=== PATIENT | female | born 1950 | race Caucasian/White ===

== ENCOUNTER 2016-10-08 21:34 | Emergency (ER) | payer OTHER ==
[2016-10-08 21:44] VITALS: BP 107/58; PULSE 97; TEMP 98.1; BMI 20.8
[2016-10-08] MEDS ORDERED: IBUPROFEN 600 MG TABLET (FP) PO ONE ×2 (23:04→23:11)
--- NOTE | 2016-10-08 23:08 | PDOC ---
[id number] No Limitations - History of Present Illness Initial Comments: 10/08/16 23:30 The patient is a 66 year old female, with a significant past medical history of IDDM, GERD, hypertension, hyperlipidemia, asthma, hypothyroidism, and gastric bypass, who presents to the emergency department complaining of a headache, body aches, stuffy nose, fever, chills, sore throat, cough, and ear pain(pins and needles) for about 3 weeks. The patient states she visited her PCP 4 days ago, was diagnosed with sinusitis, and prescribed augmentin. The patient reports she is compliant with her treatment regimen, but states it has not alleviated her symptoms. The patient reports a headache secondary to coughing. She reports diarrhea for 1 day, with 4+ episodes. She reports chest pain upon deep inspiration, but denies any palpitations, diaphoresis, or SOB. She denies any dysuria, hematuria, frequency, or urgency. She reports she came into contact with children who had an ear and throat infection about 2-3 weeks ago. Allergies: None reported. Past Surgical History:Gastric bypass Social History: Non-smoker. Denies alcohol or drug use. <Ancelmo Argueta - Last Filed: 10/09/16 00:00> <Claudia Harrell - Last Filed: 10/09/16 00:27> - General Chief Complaint: Respiratory Stated Complaint: COLD SYMPTOMS Time Seen by Provider: 10/08/16 22:10 Past History <Ancelmo Argueta - Last Filed: 10/09/16 00:00> - Past Medical History Anemia: No Asthma: Yes Cancer: No Cardiac Disorders: (palpitations) CVA: No COPD: No CHF: No Dementia: No Diabetes: Yes (iddm) GI Disorders: Yes (gerd) Disorders: No HTN: Yes Hypercholesterolemia: Yes Liver Disease: No Seizures: No Thyroid Disease: Yes (hypothyroid) - Surgical History Abdominal Surgery: Yes Appendectomy: No Cardiac Surgery: No Cholecystectomy: Yes Lung Surgery: No Neurologic Surgery: No Orthopedic Surgery: No - Immunization History Immunization Up to Date: Yes - Psycho/Social/Smoking Cessation Hx Anxiety: No Suicidal Ideation: No Smoking Status: No Smoking History: Never smoked Number of Cigarettes Smoked Daily: 0 Hx Alcohol Use: No Drug/Substance Use Hx: No Substance Use Type: None Hx Substance Use Treatment: No <Claudia Harrell - Last Filed: 10/09/16 00:27> - Past Medical History Allergies/Adverse Reactions: Allergies Allergy/AdvReac Type Severity Reaction Status Date / Time No Known Allergies Allergy Verified 10/08/16 21:41 Home Medications: Ambulatory Orders Levothyroxine [Synthroid] 137 mcg PO DAILY 06/08/12 Ascorbate Calcium [Vitamin C] 500 mg PO DAILY 02/04/15 Metoprolol Tartrate [Lopressor -] 25 mg PO BID 02/04/15 Montelukast Na [Singulair -] 5 mg PO HS 02/04/15 Multivitamins [Tab-A-Vit -] 1 tab PO DAILY 02/04/15 Omeprazole [Prilosec] 40 mg PO DAILY 02/04/15 Salmeterol/Fluticasone [Advair 100Mcg/50Mcg -] 1 inh PO BID 02/04/15 Albuterol Sulfate Inhaler - [Ventolin HFA Inhaler -] 1 - 2 inh PO QID #1 inhaler 10/08/16 Prednisone [Deltasone -] 40 mg PO DAILY #10 tablet 10/08/16 Review of Systems - Review of Systems Able to Perform ROS?: Yes Comments:: 10/08/16 23:30 GENERAL/CONSTITUTIONAL: +Fever, +chills, +body aches. No weakness. HEAD, EYES, EARS, NOSE AND THROAT: +Ear pain.+ sore throat. No ear discharge. No change in vision. CARDIOVASCULAR: +Chest pain upon deep inspiration. No shortness of breath. RESPIRATORY: +Cough. No wheezing, or hemoptysis. GASTROINTESTINAL: No nausea, vomiting, diarrhea or constipation. GENITOURINARY: No dysuria, frequency, or change in urination. MUSCULOSKELETAL: No joint or muscle swelling or pain. No neck or back pain. SKIN: No rash NEUROLOGIC: +Headache. No vertigo, loss of consciousness, or change in strength/ sensation. ENDOCRINE: No increased thirst. No abnormal weight change. HEMATOLOGIC/LYMPHATIC: No anemia, easy bleeding, or history of blood clots. ALLERGIC/IMMUNOLOGIC: No hives or skin allergy. <Ancelmo Argueta - Last Filed: 10/09/16 00:00> *Physical Exam - Vital Signs Last Vital Signs Temp Pulse Resp BP Pulse Ox 98.1 F 97 H 18 107/58 100 10/08/16 21:42 10/08/16 21:42 10/08/16 21:42 10/08/16 21:42 10/08/16 21:42 - Physical Exam Comments: 10/08/16 23:33 GENERAL: Awake, alert, and fully oriented, in no acute distress HEAD: No signs of trauma EYES: PERRLA, EOMI, sclera anicteric, conjunctiva clear ENT: +Maxillary sinus tenderness bilaterally. + Bulging of the left tympanic membrane with clear effusion. Nares patent, oropharynx clear without exudates. Moist mucosa. NECK: Normal ROM, supple, no lymphadenopathy, JVD, or masses LUNGS: Breath sounds equal, clear to auscultation bilaterally. No wheezes, and no crackles HEART: Regular rate and rhythm, normal S1 and S2, no murmurs, rubs or gallops ABDOMEN: Soft, nontender, normoactive bowel sounds. No guarding, no rebound. No masses EXTREMITIES: Normal range of motion, no edema. No clubbing or cyanosis. No cords, erythema, or tenderness NEUROLOGICAL: Cranial nerves II through XII grossly intact. Normal speech, normal gait SKIN: Warm, Dry, normal turgor, no rashes or lesions noted. <Ancelmo Argueta - Last Filed: 10/09/16 00:00> - Vital Signs Last Vital Signs Temp Pulse Resp BP Pulse Ox 98.1 F 97 H 18 107/58 100 10/08/16 21:42 10/08/16 21:42 10/08/16 21:42 10/08/16 21:42 10/08/16 21:42 <Claudia Harrell - Last Filed: 10/09/16 00:27> ED Treatment Course - Medications Given in the ED: ED Medications Discontinued Medications Generic Name Dose Route Start Last Admin Trade Name Freq PRN Reason Stop Dose Admin Ibuprofen 600 mg 10/08/16 23:04 10/08/16 23:17 Motrin - PO 10/08/16 23:05 600 mg ONCE ONE Administration <Ancelmo Argueta - Last Filed: 10/09/16 00:00> Medical Decision Making - Medical Decision Making Pt with multiple complaints, but mainly her complaint is that she has headache. Her headaches are chronic, but recently worse for the past few days. She was placed on augmentin for sinusitis, by the PMD. She has just started it. She noted that she was supposed to have rx for prednisone, but that prescription was not written. She denies any difficulty breathing at present, and her lungs are clear. She has maxillary sinus tenderness c/w sinusitis. CXR no acute findings. I have written rx for the prednisone. Gave her motrin for the headache. Counseled her to take the augmentin as prescribed, as it will not work right away. F/u with PMD. <Claudia Harrell - Last Filed: 10/09/16 00:27> *DC/Admit/Observation/Transfer - Attestations Scribe Attestion: Documentation prepared by Ancelmo Argueta, acting as medical device for Claudia Harrell MD. <Ancelmo Argueta - Last Filed: 10/09/16 00:00> - Discharge Dispostion Admit: No <Claudia Harrell - Last Filed: 10/09/16 00:27> Diagnosis at time of Disposition: Sinusitis Qualifiers: Sinusitis location: other Chronicity: unspecified Qualified Code(s): J32.9 - Chronic sinusitis, unspecified - Discharge Dispostion Disposition: HOME Condition at time of disposition: Stable - Prescriptions Prescriptions: Prednisone [Deltasone -] 40 mg PO DAILY #10 tablet Albuterol Sulfate Inhaler - [Ventolin HFA Inhaler -] 1 - 2 inh PO QID #1 inhaler - Referrals Referrals: Pamela Contreras MD [Primary Care Provider] - - Patient Instructions Printed Discharge Instructions: DI for Sinusitis
== END 2016-10-08 23:42 | disposition home or self-care (01) ==
LOC: JER 21:34
DX: J32.9 Chronic sinusitis, unspecified (principal); I10 Essential (primary) hypertension; E11.9 Type 2 diabetes mellitus without complications; Z79.4 Long term (current) use of insulin; E78.00 Pure hypercholesterolemia, unspecified; E03.9 Hypothyroidism, unspecified; K21.9 Gastro-esophageal reflux disease without esophagitis; Z98.84 Bariatric surgery status
CPT/HCPCS: 71020-TC; 99281-25

== ENCOUNTER 2017-10-21 21:31 | Emergency (ER) | payer MEDICARE, OTHER ==
[2017-10-21 21:56] VITALS: BP 114/70; PULSE 98; TEMP 99; BMI 22.6
--- NOTE | 2017-10-21 23:12 | PDOC ---
History of Present Illness - General History Source: Patient - History of Present Illness Initial Comments: 10/22/17 01:13 The patient is a 67 year old female, with a significant past medical history of hypertension, diabetes, asthma, who presents to the emergency department with chest tightness, non-productive cough, nausea, diarrhea, intermittent chills, generalized weakness and itchy ears and throat for about 4 days. The patient states she lives home with her granddaughter and and reports her granddaughter was ill with similar symptoms about a week ago. She denies chest pain, shortness of breath, headache and dizziness. She denies fever, nausea, vomit, diarrhea and constipation. She denies dysuria, frequency, urgency and hematuria. <Enriqueta Nayak - Last Filed: 10/22/17 01:16> <Aurora Merrill - Last Filed: 10/22/17 02:21> - General Chief Complaint: Respiratory Stated Complaint: SOB Time Seen by Provider: 10/21/17 22:07 Past History <Enriqueta Nayak - Last Filed: 10/22/17 01:16> - Past Medical History Anemia: No Asthma: Yes Cancer: No Cardiac Disorders: (palpitations) CVA: No COPD: No CHF: No Dementia: No Diabetes: Yes (iddm) GI Disorders: Yes (gerd) Disorders: No HTN: Yes Hypercholesterolemia: Yes Liver Disease: No Seizures: No Thyroid Disease: Yes (hypothyroid) - Surgical History Abdominal Surgery: Yes Appendectomy: No Cardiac Surgery: No Cholecystectomy: Yes Lung Surgery: No Neurologic Surgery: No Orthopedic Surgery: No - Immunization History Immunization Up to Date: Yes - Suicide/Smoking/Psychosocial Hx Smoking Status: No Smoking History: Never smoked Number of Cigarettes Smoked Daily: 0 Hx Alcohol Use: No Drug/Substance Use Hx: No Substance Use Type: None Hx Substance Use Treatment: No <Aurora Merrill - Last Filed: 10/22/17 02:21> - Past Medical History Allergies/Adverse Reactions: Allergies Allergy/AdvReac Type Severity Reaction Status Date / Time No Known Allergies Allergy Verified 10/21/17 21:54 Home Medications: Ambulatory Orders Levothyroxine [Synthroid] 137 mcg PO DAILY 06/08/12 Ascorbate Calcium [Vitamin C] 500 mg PO DAILY 02/04/15 Metoprolol Tartrate [Lopressor -] 25 mg PO BID 02/04/15 Montelukast Na [Singulair -] 5 mg PO HS 02/04/15 Multivitamins [Tab-A-Vit -] 1 tab PO DAILY 02/04/15 Omeprazole [Prilosec] 40 mg PO DAILY 02/04/15 Salmeterol/Fluticasone [Advair 100Mcg/50Mcg -] 1 inh PO BID 02/04/15 Albuterol Sulfate Inhaler - [Ventolin HFA Inhaler -] 1 - 2 inh PO QID #1 inhaler 10/08/16 Prednisone [Deltasone -] 40 mg PO DAILY #10 tablet 10/08/16 Review of Systems - Review of Systems Able to Perform ROS?: Yes Comments:: 10/22/17 01:14 CONSTITUTIONAL: (+) chills, generalized weakness, Absent: fever, diaphoresis, malaise, loss of appetite HEENT: (+) throat and bilateral ear itching. Absent: rhinorrhea, nasal congestion, throat pain, throat swelling, difficulty swallowing, mouth swelling, ear pain, eye pain, visual Changes CARDIOVASCULAR: (+) chest tightness. Absent: syncope, palpitations, irregular heart rate, lightheadedness, peripheral edema RESPIRATORY: (+) cough, Absent: shortness of breath, dyspnea with exertion, orthopnea, wheezing, stridor, hemoptysis GASTROINTESTINAL: (+) nausea, diarrhea,Absent: abdominal pain, abdominal distension, vomiting, constipation, melena, hematochezia GENITOURINARY: Absent: dysuria, frequency, urgency, hesitancy, hematuria, flank pain, genital pain MUSCULOSKELETAL: Absent: myalgia, arthralgia, joint swelling SKIN: Absent: rash, itching, pallor HEMATOLOGIC/IMMUNOLOGIC: Absent: easy bleeding, easy bruising, lymphadenopathy, frequent infections ENDOCRINE: Absent: unexplained weight gain, unexplained weight loss, heat intolerance, cold intolerance NEUROLOGIC: Absent: headache, focal weakness or paresthesias, dizziness, unsteady gait, seizure, mental status changes, bladder or bowel incontinence PSYCHIATRIC: Absent: anxiety, depression, suicidal or homicidal ideation, hallucinations. <Enriqueta Nayak - Last Filed: 10/22/17 01:16> *Physical Exam - Vital Signs Last Vital Signs Temp Pulse Resp BP Pulse Ox 99 F 98 H 20 114/70 99 10/21/17 21:54 10/21/17 21:54 10/21/17 21:54 10/21/17 21:54 10/21/17 21:54 - Physical Exam Comments: 10/22/17 01:16 GENERAL: Well developed, well nourished. Awake and alert. No acute distress. HEENT: Normocephalic, atraumatic. PERRLA, EOMI. No conjunctival pallor. Sclera are non- icteric. Moist mucous membranes. Oropharynx is clear. NECK: Supple. Full ROM. No JVD. Carotid pulses 2+ and symmetric, without bruits. No thyromegaly. No lymphadenopathy. CARDIOVASCULAR: Regular rate and rhythm. No murmurs, rubs, or gallops. Distal pulses are 2+ and symmetric. PULMONARY: No evidence of respiratory distress. Lungs clear to auscultation bilaterally. No wheezing, rales or rhonchi. ABDOMINAL: Soft. Non-tender. Non-distended. No rebound or guarding. No organomegaly. Normoactive bowel sounds. MUSCULOSKELETAL Normal range of motion at all joints. No bony deformities or tenderness. No CVA tenderness. EXTREMITIES: No cyanosis. No clubbing. No edema. No calf tenderness. SKIN: Warm and dry. Normal capillary refill. No rashes. No jaundice. NEUROLOGICAL: Alert, awake, appropriate. Cranial nerves 2-12 intact. Normoreflexic in the upper and lower extremities. Normal speech. Toes are down-going bilaterally. Gait is normal without ataxia. PSYCHIATRIC: Cooperative. Good eye contact. Appropriate mood and affect. <Enriqueta Nayak - Last Filed: 10/22/17 01:16> - Vital Signs Last Vital Signs Temp Pulse Resp BP Pulse Ox 99 F 98 H 20 114/70 99 10/21/17 21:54 10/21/17 21:54 10/21/17 21:54 10/21/17 21:54 10/21/17 21:54 <Aurora Merrill - Last Filed: 10/22/17 02:21> Heart Score/ECG Review - ECG Intrepretation Comment:: 10/22/17 01:17 EKG was read by Dr. Merrill at 00:16 Impression: Normal sinus rhythm Vent. Rate: 82 bpm NH Interval: 134 ms QTc: 434 ms <Enriqueta Nayak - Last Filed: 10/22/17 01:16> ED Treatment Course - LABORATORY CBC & Chemistry Diagram: 10/22/17 00:20 10/22/17 00:20 - ADDITIONAL ORDERS Additional order review: 10/22/17 00:20 Influenza Types A,B Antigen (DANNY) - Final Nasopharyngeal Swab - Final 10/22/17 00:20 RBC 3.77 MCV 89.3 MCHC 32.9 RDW 13.6 MPV 8.0 Neutrophils % 65.1 Lymphocytes % 21.8 Monocytes % 8.1 Eosinophils % 4.2 Basophils % 0.8 <Enriqueta Nayak - Last Filed: 10/22/17 01:16> - LABORATORY CBC & Chemistry Diagram: 10/22/17 00:20 10/22/17 00:20 <Aurora Merrill - Last Filed: 10/22/17 02:21> Medical Decision Making - Medical Decision Making 10/22/17 00:42 Exam normal EKG normal Labs and CXR pending 10/22/17 01:22 Flu negative. CBC normal. <Aurora Merrill - Last Filed: 10/22/17 02:21> *DC/Admit/Observation/Transfer - Attestations Scribe Attestion: 10/22/17 01:16 Documentation prepared by Enriqueta Nayak, acting as medical support assistant for Aurora Merrill MD <Enriqueta Nayak - Last Filed: 10/22/17 01:16> - Discharge Dispostion Admit: No <Aurora Merrill - Last Filed: 10/22/17 02:21> Diagnosis at time of Disposition: Viral illness - Discharge Dispostion Disposition: HOME Condition at time of disposition: Improved - Referrals Referrals: Sudha Le MD [Primary Care Provider] - - Patient Instructions Printed Discharge Instructions: DI for Viral Upper Respiratory Infection -- Adult - Post Discharge Activity
[2017-10-22 00:39] LABS: BASO % 0.8 % (0-2.0); EOS % 4.2 % (0-4.5); HEMATOCRIT 33.7 % (32.4-45.2); HEMOGLOBIN 11.1 GM/dL (10.7-15.3); LYMPH % 21.8 % (8-40); MCH 29.4 pg (25.7-33.7); MCHC 32.9 g/dl (32.0-36.0); MEAN CELL VOLUME 89.3 fl (80-96); MONO % 8.1 % (3.8-10.2); NEUT % 65.1 % (42.8-82.8); PLATELET COUNT 319 K/MM3 (134-434); RBC 3.77 M/mm3 (3.60-5.2); RDW 13.6 % (11.6-15.6); WHITE BLOOD COUNT 7.3 K/mm3 (4.0-10.0)
[2017-10-22 01:11] LABS: ALBUMIN 3.5 g/dl (3.4-5.0); ANION GAP 8 (8-16); BILIRUBIN,TOTAL 0.1 mg/dL (0.2-1.0); BLOOD UREA NITROGEN 17 mg/dL (7-18); CALCIUM 8.4 mg/dL (8.5-10.1); CHLORIDE 105 mmol/L (98-107); CO2 28 mmol/L (21-32); CREATININE 0.8 mg/dL (0.55-1.02); GLUCOSE,RANDOM 118 mg/dL (74-106); POTASSIUM 4.2 mmol/L (3.5-5.1); SGOT/AST 17 U/L (15-37); SGPT/ALT 23 U/L (12-78); SODIUM 141 mmol/L (136-145); TOT PROT 7.2 g/dl (6.4-8.2)
[2017-10-22 01:14] LABS: ALK PHOS 120 U/L (45-117)
--- NOTE | 2017-10-22 12:24 | EKG ---
Test Reason : Blood Pressure : / mmHG Vent. Rate : 082 BPM Atrial Rate : 082 BPM P-R Int : 134 ms QRS Dur : 070 ms QT Int : 372 ms P-R-T Axes : 034 -01 037 degrees QTc Int : 434 ms NORMAL SINUS RHYTHM POOR R WAVE PROGRESSION ABNORMAL ECG WHEN COMPARED WITH ECG OF 30-DEC-2011 09:14, NOTE ERROR IN LEAD V4, RECOMMEND REPEAT Confirmed by JANNETTE REHMAN, HARVINDER ([id number]) on 10/22/2017 12:24:02 PM Referred By: Confirmed By:HARVINDER BHATIA MD
== END 2017-10-22 02:35 | disposition home or self-care (01) ==
LOC: JER 21:31
DX: J06.9 Acute upper respiratory infection, unspecified (principal); B97.89 Other viral agents as the cause of diseases classified elsewhere; J45.909 Unspecified asthma, uncomplicated; I10 Essential (primary) hypertension; E78.00 Pure hypercholesterolemia, unspecified; E11.9 Type 2 diabetes mellitus without complications; Z79.4 Long term (current) use of insulin
CPT/HCPCS: 36415; 71046-TC-FY; 80053; 82550; 84484; 85025; 87804; 93005; 93010; 99281-25

== ENCOUNTER 2018-11-08 22:56 | Emergency (ER) | payer MEDICARE, OTHER ==
[2018-11-08 23:10] VITALS: BMI 22.6
--- NOTE | 2018-11-08 23:28 | PDOC ---
History of Present Illness - General Chief Complaint: Cold Symptoms Stated Complaint: COUGHING Time Seen by Provider: 11/08/18 23:28 - History of Present Illness Initial Comments: 68 year old female with PMH of IDDM, GERD, hypertension, hyperlipidemia, asthma , hypothyroidism, and gastric bypass, and ICM (medtronic placed 06/2018) presenting with cough for the past two days with warmth and congestion. States that she has been coughing vigorously for two days and has felt a burning sensation in her chest. She has also had chills and general body warmth that she hasn't attempted to measure at home. Denies nausea, vomiting, diarrhea, or other symptoms. 11/08/18 23:35 Past History - Past Medical History Allergies/Adverse Reactions: Allergies Allergy/AdvReac Type Severity Reaction Status Date / Time No Known Allergies Allergy Verified 11/08/18 23:10 Home Medications: Ambulatory Orders Levothyroxine [Synthroid] 137 mcg PO DAILY 06/08/12 Ascorbate Calcium [Vitamin C] 500 mg PO DAILY 02/04/15 Metoprolol Tartrate [Lopressor -] 25 mg PO BID 02/04/15 Montelukast Na [Singulair -] 5 mg PO HS 02/04/15 Multivitamins [Tab-A-Vit -] 1 tab PO DAILY 02/04/15 Omeprazole [Prilosec] 40 mg PO DAILY 02/04/15 Salmeterol/Fluticasone [Advair 100Mcg/50Mcg -] 1 inh PO BID 02/04/15 Albuterol Sulfate Inhaler - [Ventolin HFA Inhaler -] 1 - 2 inh PO QID #1 inhaler 10/08/16 predniSONE [Deltasone -] 40 mg PO DAILY #10 tablet 10/08/16 Albuterol Sulfate Inhaler - [Ventolin HFA Inhaler -] 1 puff IH Q6H PRN #1 inhaler 11/09/18 Oseltamivir Phosphate [Tamiflu -] 75 mg PO BID #10 capsule 11/09/18 Anemia: No Asthma: Yes Cancer: No Cardiac Disorders: (palpitations) CVA: No COPD: No CHF: No Dementia: No Diabetes: Yes (iddm) GI Disorders: Yes (gerd) Disorders: No HTN: Yes Hypercholesterolemia: Yes Liver Disease: No Seizures: No Thyroid Disease: Yes (hypothyroid) - Surgical History Abdominal Surgery: Yes Appendectomy: No Cardiac Surgery: No Cholecystectomy: Yes Lung Surgery: No Neurologic Surgery: No Orthopedic Surgery: No - Immunization History Immunization Up to Date: Yes - Suicide/Smoking/Psychosocial Hx Smoking Status: No Smoking History: Never smoked Have you smoked in the past 12 months: No Number of Cigarettes Smoked Daily: 0 Information on smoking cessation initiated: No Hx Alcohol Use: No Drug/Substance Use Hx: No Substance Use Type: None Hx Substance Use Treatment: No Review of Systems - Review of Systems Constitutional: Yes: Chills, Fever. No: Diaphoresis HEENTM: No: Eye Pain, Blurred Vision, Tearing Respiratory: No: Cough, Orthopnea, Shortness of Breath Cardiac (ROS): No: Chest Pain, Edema, Irregular Heart Rate ABD/GI: No: Diarrhea, Nausea, Vomiting : No: Burning, Dysuria, Discharge Musculoskeletal: No: Back Pain, Joint Pain Neurological: Yes: Headache. No: Numbness, Paresthesia Psychiatric: No: Anxiety, Depression Hematologic/Lymphatic: No: Anemia, Blood Clots, Easy Bleeding *Physical Exam - Vital Signs Last Vital Signs Temp Pulse Resp BP Pulse Ox 99.3 F 94 H 16 103/70 100 11/08/18 23:08 11/08/18 23:08 11/08/18 23:08 11/08/18 23:08 11/08/18 23:08 - Physical Exam General Appearance: Yes: Nourished, Appropriately Dressed. No: Apparent Distress HEENT: positive: EOMI, TETO. negative: Normal ENT Inspection (nasal congestion) Neck: positive: Trachea midline, Normal Thyroid, Supple. negative: Tender, Rigid Respiratory/Chest: positive: Lungs Clear, Normal Breath Sounds. negative: Chest Tender, Respiratory Distress, Accessory Muscle Use Cardiovascular: positive: Regular Rhythm, Regular Rate Gastrointestinal/Abdominal: positive: Normal Bowel Sounds, Flat, Soft. negative : Tender Lymphatic: negative: Adenopathy, Tenderness Musculoskeletal: positive: Normal Inspection. negative: Decreased Range of Motion Extremity: positive: Normal Capillary Refill, Normal Inspection, Normal Range of Motion. negative: Tender Integumentary: positive: Normal Color, Dry, Warm Neurologic: positive: Fully Oriented, Alert, Normal Mood/Affect, Normal Response , Motor Strength 5/5 Moderate Sedation - Procedure Monitoring Vital Signs: Procedure Monitoring Vital Signs Temperature 99.3 F 11/08/18 23:08 Pulse Rate 94 H 11/08/18 23:08 Respiratory Rate 16 11/08/18 23:08 Blood Pressure 103/70 11/08/18 23:08 O2 Sat by Pulse Oximetry (%) 100 11/08/18 23:08 ED Treatment Course - LABORATORY CBC & Chemistry Diagram: 11/09/18 00:13 11/09/18 00:13 Medical Decision Making - Medical Decision Making 68 year old with cough, congestion, warmth and chest pain with cough for the past 2 days. This is highly suggestive of the flu. Labs WNL including troponin and EKG demonstrating rate 85, DC interval 132, QRS 68, QTc 437, normal axis and not St or t wave changes. Patient feeling slightly improved. Will DC with tamiflu. 11/09/18 01:45 *DC/Admit/Observation/Transfer Diagnosis at time of Disposition: Cough with congestion of paranasal sinus - Discharge Dispostion Disposition: HOME Condition at time of disposition: Improved Decision to Admit order: No - Prescriptions Prescriptions: Albuterol Sulfate Inhaler - [Ventolin HFA Inhaler -] 1 puff IH Q6H PRN #1 inhaler PRN Reason: Short Of Breath/Wheezing Oseltamivir Phosphate [Tamiflu -] 75 mg PO BID #10 capsule - Referrals Referrals: Jassi Dean MD [Primary Care Provider] - - Patient Instructions Printed Discharge Instructions: How to Avoid a Cold or Flu, DI for Viral Upper Respiratory Infection -- Adult Additional Instructions: Please take the tamiflu twice a day for 5 days. Please take Tylenol for the pain and fever. Please take the inhaler for any shortness of breath that you have. Please return to the ED if you have new or worsening symptoms. - Post Discharge Activity
[2018-11-09 00:55] LABS: BASO % 0.7 % (0-2.0); EOS % 1.2 % (0-4.5); HEMATOCRIT 35.1 % (32.4-45.2); HEMOGLOBIN 12.1 GM/dL (10.7-15.3); MCHC 34.6 g/dl (32.0-36.0); MEAN CELL VOLUME 89.5 fl (80-96); MEAN PLT VOLUME 8.8 fl (7.5-11.1); MONO % 8.9 % (3.8-10.2); NEUT % 75.2 % (42.8-82.8); PLATELET COUNT 281 K/MM3 (134-434); RBC 3.92 M/mm3 (3.60-5.2); RDW 14.8 % (11.6-15.6); WHITE BLOOD COUNT 5.1 K/mm3 (4.0-10.0)
[2018-11-09 01:29] LABS: ALBUMIN 3.4 g/dl (3.4-5.0); ALK PHOS 118 U/L (45-117); ANION GAP 8 MMOL/L (8-16); BILIRUBIN,TOTAL 0.1 mg/dL (0.2-1); BLOOD UREA NITROGEN 13 mg/dL (7-18); CALCIUM 8.4 mg/dL (8.5-10.1); CHLORIDE 104 mmol/L (98-107); CO2 25 mmol/L (21-32); CREATININE 1.1 mg/dL (0.55-1.3); GLUCOSE,RANDOM 128 mg/dL (74-106); SGOT/AST 26 U/L (15-37); SGPT/ALT 23 U/L (13-61); SODIUM 137 mmol/L (136-145); TOT PROT 7.5 g/dl (6.4-8.2)
--- NOTE | 2018-11-09 01:58 | PDOC ---
Attending Attestation - Resident Resident Name: Radha Jimenez - ED Attending Attestation I have performed the following: I have examined & evaluated the patient, The case was reviewed & discussed with the resident, I agree w/resident's findings & plan, Exceptions are as noted - HPI HPI: 11/09/18 01:56 68-year-old female history of diabetes, GERD, hypertension, hyperlipidemia, asthma, hypothyroidism, gastric bypass, ICM presents with flulike symptoms. Patient has been reporting body aches and coughing and chest discomfort with cough. Stated that the symptoms occurred around yesterday morning. Denies dyspnea on exertion or chest pain. She has tried taking albuterol with minimal effect. Because the symptoms she came to the ER. - Physicial Exam PE: 11/09/18 01:57 GENERAL: Awake, alert, and fully oriented, in no acute distress HEAD: No signs of trauma EYES: EOMI, sclera anicteric, conjunctiva clear ENT: Auricles normal inspection, hearing grossly normal, nares patent NECK: Normal ROM, supple, LUNGS: Breath sounds equal, clear to auscultation bilaterally. No wheezes, and no crackles HEART: Regular rate and rhythm, normal S1 and S2, no murmurs, rubs or gallops ABDOMEN: Soft, nontender, No guarding, no rebound. No masses EXTREMITIES: Normal range of motion, no edema. No clubbing or cyanosis. No cords, erythema, or tenderness NEUROLOGICAL: Cranial nerves II through XII grossly intact. Normal speech SKIN: Warm, Dry, normal turgor, no rashes or lesions noted. - Medical Decision Making 11/09/18 01:57 Vital Signs Temp Pulse Resp BP Pulse Ox 99.3 F 94 H 16 103/70 100 11/08/18 23:08 11/08/18 23:08 11/08/18 23:08 11/08/18 23:08 11/08/18 23:08 The patient is likely with influenza. We'll treat empirically with Tamiflu. Chest x-ray reviewed by me pending official read demonstrates no discharge. Labs reviewed. Patient should go home with Tamiflu and supportive care with strict return precautions. She otherwise nontoxic appearing. Heart Score/ECG Review #1 ECG reviewed & interpreted by me at: 00:30 11/09/18 01:55 NSR 85, no std/cookie, normal axis, normal intervals, QTC 437 msec
[2018-11-09 02:07] VITALS: BP 110/78; PULSE 78; TEMP 98.5
--- NOTE | 2018-11-09 11:33 | EKG ---
Test Reason : Blood Pressure : / mmHG Vent. Rate : 085 BPM Atrial Rate : 085 BPM P-R Int : 132 ms QRS Dur : 068 ms QT Int : 368 ms P-R-T Axes : 038 002 041 degrees QTc Int : 437 ms NORMAL SINUS RHYTHM NORMAL ECG WHEN COMPARED WITH ECG OF 22-OCT-2017 00:16, NO SIGNIFICANT CHANGE WAS FOUND Confirmed by GIRISH DE LA ROSA MD ([id number]) on 11/09/2018 11:32:43 AM Referred By: Confirmed By:GIRISH DE LA ROSA MD
== END 2018-11-09 02:09 | disposition home or self-care (01) ==
LOC: JER 22:56
DX: J11.1 Influenza due to unidentified influenza virus with other respiratory manifestations (principal); I10 Essential (primary) hypertension; E78.5 Hyperlipidemia, unspecified; E03.9 Hypothyroidism, unspecified; E11.9 Type 2 diabetes mellitus without complications; Z79.4 Long term (current) use of insulin; K21.9 Gastro-esophageal reflux disease without esophagitis; J45.909 Unspecified asthma, uncomplicated; Z95.818 Presence of other cardiac implants and grafts
CPT/HCPCS: 36415; 71045-TC-FY; 80053; 84484; 85025; 87804; 93005; 93010; 99282-25

== ENCOUNTER 2019-03-28 02:02 | Emergency (ER) | payer MEDICARE, OTHER ==
[2019-03-28] MEDS ORDERED: DEXAMETHASONE SOD PHOSPHATE 10 MG/1 ML VIAL IVPUSH ONE (04:21)
[2019-03-28] MEDS ORDERED: ACETAMINOPHEN 500 MG TABLET (FP) PO ONE (04:21)
[2019-03-28] MEDS ORDERED: DEXAMETHASONE SOD PHOSPHATE 10 MG/1 ML VIAL ONE (04:26)
[2019-03-28] MEDS ORDERED: ACETAMINOPHEN 325 MG TABLET (FP) ONE (04:26)
[2019-03-28 04:38] VITALS: BP 120/71; PULSE 96; TEMP 100.2; BMI 21.7
--- NOTE | 2019-03-28 04:39 | PDOC ---
Attending Attestation - Resident Resident Name: Barb Braun - ED Attending Attestation I have performed the following: I have examined & evaluated the patient, The case was reviewed & discussed with the resident, I agree w/resident's findings & plan - HPI HPI: 03/28/19 05:33 68-year-old female with runny nose sore throat and dry cough as well as low- grade fever. - Physicial Exam PE: 03/28/19 05:33 agree with resident exam - Medical Decision Making 03/28/19 05:34 Well-appearing 68-year-old with URI symptoms Rapid strep is negative Will DC home with recommendations for supportive care and to return if worse
--- NOTE | 2019-03-28 04:57 | PDOC ---
History of Present Illness - General Chief Complaint: Ear Problem Stated Complaint: EAR PAIN Time Seen by Provider: 03/28/19 03:17 History Source: Patient Exam Limitations: No Limitations - History of Present Illness Initial Comments: 03/28/19 04:53 68yo F with PMH of HTN presenting to ED with one day of bilateral earaches and sore throat. Pt states that she has her grandchildren around and they have been having ear infections and sore throat. She endorses fever today and occasional dry cough. Denies chest pain, sob, productive cough, chest pain, headache, changes in vision, abdominal pain, n/v/d, travel, recent antibiotic use, swimming, foreign bodies in the ear. PMD: PMH: see hpi PSH: none Meds: Allergies: nkda Social: denies Past History - Past Medical History Allergies/Adverse Reactions: Allergies Allergy/AdvReac Type Severity Reaction Status Date / Time No Known Allergies Allergy Verified 03/28/19 03:08 Home Medications: Ambulatory Orders Levothyroxine [Synthroid] 137 mcg PO DAILY 06/08/12 Ascorbate Calcium [Vitamin C] 500 mg PO DAILY 02/04/15 Metoprolol Tartrate [Lopressor -] 25 mg PO BID 02/04/15 Montelukast Na [Singulair -] 5 mg PO HS 02/04/15 Multivitamins [Tab-A-Vit -] 1 tab PO DAILY 02/04/15 Omeprazole [Prilosec] 40 mg PO DAILY 02/04/15 Salmeterol/Fluticasone [Advair 100Mcg/50Mcg -] 1 inh PO BID 02/04/15 Albuterol Sulfate Inhaler - [Ventolin HFA Inhaler -] 1 - 2 inh PO QID #1 inhaler 10/08/16 predniSONE [Deltasone -] 40 mg PO DAILY #10 tablet 10/08/16 Albuterol Sulfate Inhaler - [Ventolin HFA Inhaler -] 1 puff IH Q6H PRN #1 inhaler 11/09/18 Oseltamivir Phosphate [Tamiflu -] 75 mg PO BID #10 capsule 11/09/18 Anemia: No Asthma: Yes Cancer: No Cardiac Disorders: (palpitations) CVA: No COPD: No CHF: No Dementia: No Diabetes: Yes (iddm) GI Disorders: Yes (gerd) Disorders: No HTN: Yes Hypercholesterolemia: Yes Liver Disease: No Seizures: No Thyroid Disease: Yes (hypothyroid) - Surgical History Abdominal Surgery: Yes Appendectomy: No Cardiac Surgery: No Cholecystectomy: Yes Lung Surgery: No Neurologic Surgery: No Orthopedic Surgery: No - Immunization History Immunization Up to Date: Yes - Suicide/Smoking/Psychosocial Hx Smoking Status: No Smoking History: Never smoked Have you smoked in the past 12 months: No Number of Cigarettes Smoked Daily: 0 Information on smoking cessation initiated: No Hx Alcohol Use: No Drug/Substance Use Hx: No Substance Use Type: None Hx Substance Use Treatment: No *Physical Exam - Vital Signs Last Vital Signs Temp Pulse Resp BP Pulse Ox 100.2 F H 96 H 16 120/71 98 03/28/19 02:02 03/28/19 02:02 03/28/19 02:02 03/28/19 02:02 03/28/19 02:02 ED Treatment Course - Medications Given in the ED: ED Medications Discontinued Medications Generic Name Dose Route Start Last Admin Trade Name Hussain PRN Reason Stop Dose Admin Acetaminophen 975 mg 03/28/19 04:21 03/28/19 04:30 Tylenol - PO 03/28/19 04:22 975 mg ONCE ONE Administration Dexamethasone Sodium Phosphate 10 mg 03/28/19 04:21 03/28/19 04:30 Decadron Injection - IVPUSH 03/28/19 04:22 10 mg ONCE ONE Administration Medical Decision Making - Medical Decision Making 03/28/19 04:55 68yo F with PMH of HTN presenting to ED with one day of bilateral earaches and sore throat. Pt states that she has her grandchildren around and they have been having ear infections and sore throat. She endorses fever today and occasional dry cough. Denies chest pain, sob, productive cough, chest pain, headache, changes in vision, abdominal pain, n/v/d, travel, recent antibiotic use, swimming, foreign bodies in the ear. Vitals: borderline fever, tachycardia PE: tonsillar exudates, TM erythema, no granulations, cervical LAD ddx includes but not limited to strep pharyngitis, viral pharyngitis, OM, DANIELLE pt is not diabetic. likely illness caught from grandchildren. Pt is well appearing, will hold off on labs for now. -rapid strep -decadron, tylenol -reassess *DC/Admit/Observation/Transfer Diagnosis at time of Disposition: Viral illness Pharyngitis Qualifiers: Pharyngitis/tonsillitis etiology: unspecified etiology Qualified Code(s): J02.9 - Acute pharyngitis, unspecified - Discharge Dispostion Disposition: HOME Condition at time of disposition: Improved Decision to Admit order: No - Referrals Referrals: Jassi Dean MD [Primary Care Provider] - - Patient Instructions Printed Discharge Instructions: DI for Viral Pharyngitis Additional Instructions: You were seen in the emergency room for pain in your ears and your throat. The strep test is negative, this is most likely a viral illness. Antibiotics do not help with viruses. The treatment is to treat the symptoms. You can take ibuprofen and Tylenol for the pain and fever as needed. Drink plenty of fluids and eat well. I highly recommend that you make an appointment with your doctor this week, let them know you were seen in the emergency room. Come back to the emergency room if fever gets worse, pain gets worse, you start developing a cough, you have difficulty hearing, worsening headaches, you have changes in vision or if any new concerning symptom develops. Thank you - Post Discharge Activity
== END 2019-03-28 05:43 | disposition home or self-care (01) ==
LOC: JER 02:02
PROC: 3E0333Z Introduction of Anti-inflammatory into Peripheral Vein, Percutaneous Approach (ICD-10-PCS; principal; 2019-03-28)
DX: J02.9 Acute pharyngitis, unspecified (principal); B34.9 Viral infection, unspecified; I10 Essential (primary) hypertension; E11.9 Type 2 diabetes mellitus without complications; Z79.4 Long term (current) use of insulin; E03.9 Hypothyroidism, unspecified; J45.909 Unspecified asthma, uncomplicated
CPT/HCPCS: 87070; 87880; 99281-25; J1100

== ENCOUNTER 2019-05-07 15:28 | Emergency (ER) | payer MEDICARE, OTHER ==
--- NOTE | 2019-05-07 15:33 | PDOC ---
Rapid Medical Evaluation Chief Complaint: Pain Time Seen by Provider: 05/07/19 15:29 Medical Evaluation: Allergies Allergy/AdvReac Type Severity Reaction Status Date / Time No Known Allergies Allergy Verified 03/28/19 03:08 05/07/19 15:30 HPI: dysuria x2 days PE:no gross deficits ORDERS: UA and Cx Discharge Disposition - Diagnosis Dysuria - Referrals - Patient Instructions - Post Discharge Activity
[2019-05-07 15:35] VITALS: BP 111/75; PULSE 90; TEMP 98.1; BMI 21.9
[2019-05-07 16:49] LABS: EPI CELLS 2.6 /HPF (0-5/HPF); HYALINE CASTS 13 /lpf (0-8); URINE APPEARANCE TURBID; URINE BILIRUBIN 1+ (NEGATIVE); URINE COLOR DK YELLOW; URINE GLUCOSE (UA) NEGATIVE (NEGATIVE); URINE KETONE NEGATIVE (NEGATIVE); URINE LEUK ESTERASE 2+ (NEGATIVE); URINE NITRITE POSITIVE (NEGATIVE); URINE PROTEIN 1+ (NEGATIVE); URINE WBC 503 /hpf (0-5)
--- NOTE | 2019-05-07 16:51 | PDOC ---
History of Present Illness - General Chief Complaint: Pain Stated Complaint: PELVIC PAIN Time Seen by Provider: 05/07/19 15:29 History Source: Patient - History of Present Illness Initial Comments: 05/07/19 17:20 Chief complaint: Pain on urination Patient is 68-year-old female with a history of A. fib, had ablation last week, successful, hypothyroidism who states she's been having 2 days of urinary pain and frequency. No fever, nausea, vomiting or any other complaints. Patient is not sure if she had a Reyes catheter during the procedure last week. GENERAL/CONSTITUTIONAL: No fever, weakness. dizziness HEAD, EYES, EARS, NOSE AND THROAT: No change in vision. No ear pain or discharge. No sore throat. CARDIOVASCULAR: No chest pain RESPIRATORY: No shortness of breath or cough GASTROINTESTINAL: No pain, nausea, vomiting, diarrhea or constipation GENITOURINARY: + dysuria, suprapubic pain MUSCULOSKELETAL: No neck or back pain SKIN: No rash NEUROLOGIC: No headache, vertigo, loss of consciousness, or loss of sensation. GENERAL: The patient is awake, alert, and fully oriented, in no acute distress. HEAD: Normal with no signs of trauma. EYES: Pupils equal, round and reactive to light, sclera anicteric, conjunctiva clear. ENT: pharynx: no erythema, no exudate, uvula midline NECK: supple CHEST: clear, nontender, rr ABD: soft, nontender, animal suprapubic tenderness, no guarding, no other tenderness BACK: no tenderness or signs of injury EXTREMITIES: Normal range of motion, no edema. NEUROLOGICAL: Normal speech, normal gait. SKIN: Warm, Dry Past History - Past Medical History Allergies/Adverse Reactions: Allergies Allergy/AdvReac Type Severity Reaction Status Date / Time No Known Allergies Allergy Verified 05/07/19 15:35 Home Medications: Ambulatory Orders Levothyroxine [Synthroid] 137 mcg PO DAILY 06/08/12 Ascorbate Calcium [Vitamin C] 500 mg PO DAILY 02/04/15 Metoprolol Tartrate [Lopressor -] 25 mg PO BID 02/04/15 Montelukast Na [Singulair -] 5 mg PO HS 02/04/15 Multivitamins [Tab-A-Vit -] 1 tab PO DAILY 02/04/15 Omeprazole [Prilosec] 40 mg PO DAILY 02/04/15 Salmeterol/Fluticasone [Advair 100Mcg/50Mcg -] 1 inh PO BID 02/04/15 Albuterol Sulfate Inhaler - [Ventolin HFA Inhaler -] 1 - 2 inh PO QID #1 inhaler 10/08/16 predniSONE [Deltasone -] 40 mg PO DAILY #10 tablet 10/08/16 Albuterol Sulfate Inhaler - [Ventolin HFA Inhaler -] 1 puff IH Q6H PRN #1 inhaler 11/09/18 Oseltamivir Phosphate [Tamiflu -] 75 mg PO BID #10 capsule 11/09/18 Cephalexin [Keflex] 1,000 mg PO BID #28 capsule 05/07/19 Anemia: No Asthma: Yes Cancer: No Cardiac Disorders: (palpitations, ablasion 05/06) CVA: No COPD: No CHF: No Dementia: No Diabetes: Yes (iddm) GI Disorders: Yes (gerd) Disorders: No HTN: Yes Hypercholesterolemia: Yes Liver Disease: No Seizures: No Thyroid Disease: Yes (hypothyroid) - Surgical History Abdominal Surgery: Yes Appendectomy: No Cardiac Surgery: No Cholecystectomy: Yes Lung Surgery: No Neurologic Surgery: No Orthopedic Surgery: No - Immunization History Immunization Up to Date: Yes - Suicide/Smoking/Psychosocial Hx Smoking Status: No Smoking History: Never smoked Have you smoked in the past 12 months: No Number of Cigarettes Smoked Daily: 0 Hx Alcohol Use: No Drug/Substance Use Hx: No Substance Use Type: None Hx Substance Use Treatment: No *Physical Exam - Vital Signs Last Vital Signs Temp Pulse Resp BP Pulse Ox 98.1 F 90 18 111/75 99 05/07/19 15:29 05/07/19 15:29 05/07/19 15:29 05/07/19 15:29 05/07/19 15:29 ED Treatment Course - ADDITIONAL ORDERS Additional order review: Laboratory Results 05/07/19 16:38 Urine Color Dk yellow Urine Appearance Turbid Urine pH 5.0 Ur Specific [place] 1.026 Urine Protein 1+ H Urine Glucose (UA) Negative Urine Ketones Negative Urine Blood 3+ H Urine Nitrite Positive H Urine Bilirubin 1+ H Urine Urobilinogen 1.0 Ur Leukocyte Esterase 2+ H Urine WBC (Auto) 503 Urine Casts (Auto) 13 U Epithel Cells (Auto) 2.6 Medical Decision Making - Medical Decision Making 05/07/19 17:21 Well appearing 68-year-old female with history of hypothyroid, A. fib that had successful ablation for the A. fib last week with 2 days of dysuria. No other symptoms, no fever and appears well. Patient will get a UA and culture done UA is positive for infection Discussed issues, findings, results, applicable medications and treatments and follow-up. All these were understood and all questions were answered *DC/Admit/Observation/Transfer Diagnosis at time of Disposition: Urinary tract infection Qualifiers: Urinary tract infection type: acute cystitis Hematuria presence: with hematuria Qualified Code(s): N30.01 - Acute cystitis with hematuria - Discharge Dispostion Disposition: HOME Condition at time of disposition: Stable - Prescriptions Prescriptions: Cephalexin [Keflex] 1,000 mg PO BID #28 capsule - Referrals Referrals: Ana Brower MD [Primary Care Provider] - - Patient Instructions Additional Instructions: Drink 2-3 L of water daily Take the Keflex 1000 mg twice a day for 7 days take Acidophilus to help prevent yeast infection or stomach upset Return ER if fever, vomiting, feeling sicker Follow-up with your doctor in 2-3 days - Post Discharge Activity
== END 2019-05-07 17:18 | disposition home or self-care (01) ==
LOC: JERFT 15:28
DX: N30.01 Acute cystitis with hematuria (principal); E03.9 Hypothyroidism, unspecified; I48.91 Unspecified atrial fibrillation
CPT/HCPCS: 81003; 87086; 87186; 99281-25

== ENCOUNTER 2021-08-27 18:43 | Emergency (ER) | payer MEDICARE, OTHER ==
[2021-08-27 18:55] VITALS: BP 134/79; PULSE 104; TEMP 98.5; BMI 21.7
[2021-08-27] MEDS ORDERED: IBUPROFEN 600 MG TABLET (FP) PO ONE ×2 (20:00→20:03)
== END 2021-08-27 20:11 | disposition home or self-care (01) ==
LOC: JERFT 18:43
DX: K08.9 Disorder of teeth and supporting structures, unspecified (principal)
CPT/HCPCS: 99283-25

== ENCOUNTER 2022-02-12 10:43 | Emergency (ER) | payer OTHER ==
[2022-02-12 10:48] VITALS: BP 148/77; PULSE 85; TEMP 97.8; BMI 21.9
[2022-02-12] MEDS ORDERED: ACETAMINOPHEN 500 MG TABLET (FP) PO ONE (12:29)
[2022-02-12] MEDS ORDERED: ACETAMINOPHEN 500 MG TABLET (FP) ONE (12:30)
== END 2022-02-12 12:37 | disposition home or self-care (01) ==
LOC: JER 10:43 → JERFT 10:43
DX: S60.212A Contusion of left wrist, initial encounter (principal)
CPT/HCPCS: 73110-TC-LT-FY; 73130-TC-LT-FY; 99284-25

== ENCOUNTER 2023-07-26 04:29 | Day surgery (SDC) | payer OTHER ==
[2023-07-25 14:54] VITALS: BMI 23.4
[2023-07-26] MEDS ORDERED: EPINEPHrine/PF 1 MG/1 ML (1:1,000) AMPULE ONE (07:24)
[2023-07-26] MEDS ORDERED: LIDOCAINE HCL/PF 2% SDV 5ML VIAL ONE ×2 (07:24→08:58)
[2023-07-26] MEDS ORDERED: POVIDONE-IODINE 5% OPHTHALMIC PREP 30 ML SOLUTION ONE (07:25)
[2023-07-26] MEDS ORDERED: TRYPAN BLUE 0.5 ML DISP.SYRIN ONE (07:25)
[2023-07-26] MEDS ORDERED: BUPIVACAINE HCL/PF 0.75% 10 ML VIAL ONE (07:25)
[2023-07-26] MEDS ORDERED: LIDOCAINE HCL/PF 1% SDV 5ML VIAL ONE (07:38)
[2023-07-26] MEDS ORDERED: CYCLOPENTOLATE HCL 1% OPHTH SOLN 2 ML BOTTLE ONE (07:41)
[2023-07-26] MEDS ORDERED: ACETAMINOPHEN 325 MG TABLET (FP) PO PRN (07:41)
[2023-07-26] MEDS ORDERED: PHENYLEPHRINE 2.5% OPTHALMIC DROP 2ML BOTTLE ONE (07:41)
[2023-07-26] MEDS ORDERED: TROPICAMIDE 1% OPHTH SOLN 15 ML BOTTLE ONE (07:41)
[2023-07-26] MEDS ORDERED: KETOROLAC TROMETHAMINE 0.5% EYE DROP 1 DROP DROPS ONE (07:41)
[2023-07-26] MEDS ORDERED: OFLOXACIN 0.3% OPHTHALMIC SOLUTION 5 ML BOTTLE ONE (07:42)
[2023-07-26] MEDS ORDERED: PHENYLEPHRINE 2.5% OPHTH SOLN 15 ML BOTTLE OP SCH (07:45)
[2023-07-26] MEDS ORDERED: CYCLOPENTOLATE HCL 1% OPHTH SOLN 2 ML BOTTLE OP SCH (07:45)
[2023-07-26] MEDS ORDERED: KETOROLAC TROMETHAMINE 0.5% EYE DROP 1 DROP DROPS OP SCH (07:45)
[2023-07-26] MEDS ORDERED: OFLOXACIN 0.3% OPHTHALMIC SOLUTION 5 ML BOTTLE OP SCH (07:45)
[2023-07-26] MEDS ORDERED: TROPICAMIDE 1% OPHTH SOLN 15 ML BOTTLE OP SCH (07:45)
[2023-07-26] MEDS ORDERED: MIDAZOLAM HCL 2 MG/2 ML SINGLE DOSE VIAL ONE (08:59)
[2023-07-26] MEDS ORDERED: PROPOFOL 20 ML ONE (08:59)
[2023-07-26] MEDS ORDERED: BUPIVACAINE HCL/PF 0.75% 10 ML VIAL NR ONE (09:16)
[2023-07-26] MEDS ORDERED: LIDOCAINE HCL/PF 2% SDV 5ML VIAL INF ONE (09:16)
[2023-07-26] MEDS ORDERED: FENTANYL CITRATE/PF 50 MCG/ML VIAL ONE (09:20)
[2023-07-26] MEDS ORDERED: POVIDONE-IODINE 5% OPHTHALMIC PREP 30 ML SOLUTION OS ONE (09:20)
[2023-07-26] MEDS ORDERED: BSS (NA/CA/MG/K) BALANCED SALT SOLUTION OPHTH SOLN 15 ML BOTTLE OS ONE (09:22)
[2023-07-26] MEDS ORDERED: CHONDROITIN SU A/HYALUR SOD 1 KIT IO ONE (09:23)
[2023-07-26] MEDS ORDERED: LIDOCAINE HCL 1% PRESERVATIVE FREE - 30ML VIAL IO ONE (09:23)
[2023-07-26] MEDS ORDERED: TRYPAN BLUE 0.5 ML DISP.SYRIN IO ONE (09:24)
[2023-07-26] MEDS ORDERED: ONDANSETRON 4 MG/2 ML VIAL ONE (09:24)
[2023-07-26] MEDS ORDERED: EPINEPHrine/PF 1 MG/1 ML (1:1,000) AMPULE SQ ONE (09:31)
[2023-07-26] MEDS ORDERED: ACETYLCHOLINE 1:100 INTRA-OCUL 20 MG/2 ML KIT IO ONE (09:52)
[2023-07-26] MEDS ORDERED: ACETAMINOPHEN 325 MG TABLET (FP) ONE (10:28)
[2023-07-26 13:09] VITALS: RESP 20
[2023-07-26 13:11] VITALS: BP 128/65; PULSE 79; TEMP 98.7
== END 2023-07-26 11:15 | disposition home or self-care (01) ==
LOC: JASU-SURG 04:29
PROVIDERS: ATTEND Ophthalmology
PROC: 08RK3JZ Replacement of Left Lens with Synthetic Substitute, Percutaneous Approach (ICD-10-PCS; principal; 2023-07-26 09:00)
DX: H25.012 Cortical age-related cataract, left eye (principal)
CPT/HCPCS: 66984; V2632

== ENCOUNTER 2023-08-16 05:18 | Day surgery (SDC) | payer OTHER ==
[2023-08-14 14:09] VITALS: BMI 23.4
[~2023-08-16 05:18] MED LIST: ACETAMINOPHEN 325 MG TABLET (FP) PO PRN; CYCLOPENTOLATE HCL 1% OPHTH SOLN 2 ML BOTTLE OP SCH; KETOROLAC TROMETHAMINE 0.5% EYE DROP 1 DROP DROPS OP SCH; OFLOXACIN 0.3% OPHTHALMIC SOLUTION 5 ML BOTTLE OP SCH; PHENYLEPHRINE 2.5% OPHTH SOLN 15 ML BOTTLE OP SCH; TROPICAMIDE 1% OPHTH SOLN 15 ML BOTTLE OP SCH
[2023-08-16] MEDS ORDERED: BSS (NA/CA/MG/K) BALANCED SALT SOLUTION OPHTH SOLN 15 ML BOTTLE ONE (07:31)
[2023-08-16] MEDS ORDERED: POVIDONE-IODINE 5% OPHTHALMIC PREP 30 ML SOLUTION ONE (07:31)
[2023-08-16] MEDS ORDERED: EPINEPHrine/PF 1 MG/1 ML (1:1,000) AMPULE ONE (07:31)
[2023-08-16] MEDS ORDERED: LIDOCAINE HCL/PF 1% SDV 5ML VIAL ONE (07:34)
== END 2023-08-16 07:55 | disposition home or self-care (01) ==
LOC: JASU-SURG 05:18
PROVIDERS: ATTEND Ophthalmology
DX: Z53.8 Procedure and treatment not carried out for other reasons (principal)

== ENCOUNTER 2023-09-20 05:00 | Day surgery (SDC) | payer OTHER ==
[2023-09-19 15:13] VITALS: BMI 24.2
[~2023-09-20 05:00] MED LIST changes: +BSS (NA/CA/MG/K) BALANCED SALT SOLUTION OPHTH SOLN 15 ML BOTTLE IO ONE; +BUPIVACAINE HCL/PF 0.75% 10 ML VIAL RB ONE; +CHONDROITIN SU A/HYALUR SOD 1 KIT IO ONE; -CYCLOPENTOLATE HCL 1% OPHTH SOLN 2 ML BOTTLE OP SCH; +EPINEPHrine/PF 1 MG/1 ML (1:1,000) AMPULE IO ONE; -KETOROLAC TROMETHAMINE 0.5% EYE DROP 1 DROP DROPS OP SCH; +LIDOCAINE HCL 1% PRESERVATIVE FREE - 30ML VIAL IO ONE; +LIDOCAINE HCL/PF 2% SDV 5ML VIAL INF ONE; -OFLOXACIN 0.3% OPHTHALMIC SOLUTION 5 ML BOTTLE OP SCH; +POVIDONE-IODINE 5% OPHTHALMIC PREP 30 ML SOLUTION OD ONE; -TROPICAMIDE 1% OPHTH SOLN 15 ML BOTTLE OP SCH
[2023-09-20] MEDS ORDERED: TRYPAN BLUE 0.5 ML DISP.SYRIN ONE (07:36)
[2023-09-20] MEDS ORDERED: TROPICAMIDE 1% OPHTH SOLN 15 ML BOTTLE ONE (08:23)
[2023-09-20] MEDS ORDERED: OFLOXACIN 0.3% OPHTHALMIC SOLUTION 5 ML BOTTLE ONE (08:23)
[2023-09-20] MEDS ORDERED: KETOROLAC TROMETHAMINE 0.5% EYE DROP 1 DROP DROPS ONE (08:23)
[2023-09-20] MEDS ORDERED: CYCLOPENTOLATE HCL 1% OPHTH SOLN 2 ML BOTTLE ONE (08:23)
[2023-09-20] MEDS: PHENYLEPHRINE 2.5% OPTHALMIC DROP 2ML BOTTLE ONE ×3 (08:34→08:58)
[2023-09-20] MEDS: OFLOXACIN 0.3% OPHTHALMIC SOLUTION 5 ML BOTTLE OP SCH ×3 (08:34→08:58)
[2023-09-20] MEDS: KETOROLAC TROMETHAMINE 0.5% EYE DROP 1 DROP DROPS OP SCH ×3 (08:34→08:58)
[2023-09-20] MEDS: TROPICAMIDE 1% OPHTH SOLN 15 ML BOTTLE OP SCH ×3 (08:34→08:59)
[2023-09-20] MEDS: CYCLOPENTOLATE HCL 1% OPHTH SOLN 2 ML BOTTLE OP SCH ×3 (08:34→08:57)
[2023-09-20] MEDS ORDERED: MIDAZOLAM HCL 2 MG/2 ML SINGLE DOSE VIAL ONE (10:23)
[2023-09-20] MEDS ORDERED: LIDOCAINE HCL/PF 2% SDV 5ML VIAL INF ONE (10:43)
[2023-09-20] MEDS ORDERED: BUPIVACAINE HCL/PF 0.75% 10 ML VIAL RB ONE (10:44)
[2023-09-20] MEDS ORDERED: POVIDONE-IODINE 5% OPHTHALMIC PREP 30 ML SOLUTION OD ONE (10:48)
[2023-09-20] MEDS ORDERED: BSS (NA/CA/MG/K) BALANCED SALT SOLUTION OPHTH SOLN 15 ML BOTTLE IO ONE (10:50)
[2023-09-20] MEDS ORDERED: LIDOCAINE HCL 1% PRESERVATIVE FREE - 30ML VIAL IO ONE (10:53)
[2023-09-20] MEDS ORDERED: EPINEPHrine/PF 1 MG/1 ML (1:1,000) AMPULE IO ONE ×2 (10:53→11:04)
[2023-09-20] MEDS ORDERED: CHONDROITIN SU A/HYALUR SOD 1 KIT IO ONE (10:53)
[2023-09-20 12:04] VITALS: RESP 18
[2023-09-20] MEDS ORDERED: ACETAMINOPHEN 325 MG TABLET (FP) ONE (12:11)
[2023-09-20 13:09] VITALS: BP 126/76; PULSE 72; TEMP 98.4
[2023-09-20] MEDS ORDERED: LIDOCAINE HCL/PF 1% SDV 5ML VIAL ONE (13:48)
[2023-09-20] MEDS ORDERED: LIDOCAINE HCL/PF 2% SDV 5ML VIAL ONE (13:48)
[2023-09-20] MEDS ORDERED: POVIDONE-IODINE 5% OPHTHALMIC PREP 30 ML SOLUTION ONE (13:49)
[2023-09-20] MEDS ORDERED: BSS (NA/CA/MG/K) BALANCED SALT SOLUTION OPHTH SOLN 15 ML BOTTLE ONE (13:49)
[2023-09-20] MEDS ORDERED: BUPIVACAINE HCL/PF 0.75% 10 ML VIAL ONE (13:49)
== END 2023-09-20 12:45 | disposition home or self-care (01) ==
LOC: JASU-SURG 05:00
PROVIDERS: ATTEND Ophthalmology
PROC: 08RJ3JZ Replacement of Right Lens with Synthetic Substitute, Percutaneous Approach (ICD-10-PCS; principal; 2023-09-20 10:00)
DX: H26.9 Unspecified cataract (principal); I10 Essential (primary) hypertension; E11.9 Type 2 diabetes mellitus without complications
CPT/HCPCS: 66984; V2632

== ENCOUNTER 2025-06-24 11:06 | Emergency (ER) | payer OTHER ==
[2025-06-24 11:17] VITALS: BP 137/74; PULSE 80; RESP 16; TEMP 98.1; BMI 21.2
[2025-06-24] MEDS ORDERED: BACITRACIN ZINC 15 GM TUBE TOPICAL OINTMENT ONE (11:46)
[2025-06-24] MEDS: BACITRACIN ZINC 15 GM TUBE TOPICAL OINTMENT TP ONE (12:05)
== END 2025-06-24 12:00 | disposition home or self-care (01) ==
LOC: JERFT 11:06
DX: Z48.02 Encounter for removal of sutures (principal)
CPT/HCPCS: 99283-25